=== PATIENT | female | born 1980 | race Caucasian/White ===

== ENCOUNTER 2020-08-25 09:38 | Outpatient (CLI) | payer OTHER ==
[~2020-08-25 09:38] MED LIST: KEFLEX CAP 500500 MG PO; PHENERGAN 25 MG25 M1 PO; ZOFRAN4 MG PO
== END 2020-08-25 12:13 | disposition other institution (70) ==
LOC: GENOP 09:38
PROVIDERS: Obstetrics & Gynecology
DX: O42.913 Preterm premature rupture of membranes, unspecified as to length of time between rupture and onset of labor, third trimester (principal); O99.891 Other specified diseases and conditions complicating pregnancy; M25.559 Pain in unspecified hip; M54.9 Dorsalgia, unspecified; Z3A.36 36 weeks gestation of pregnancy
CPT/HCPCS: 80307; 81001; 82731; 83518; G0463

== ENCOUNTER 2020-10-09 07:02 | Inpatient (IN) | payer OTHER ==
[~2020-10-09] VITALS: Ht 157.5 cm; Wt 99.3 kg
[2020-10-09 07:43] LABS: HEMOGLOBIN 10.4 gm/dl (12.3-15.3); RED BLOOD COUNT 3.35 M/UL (4.00-5.10)
[2020-10-09] MEDS ORDERED: PRENATAL TABLE1 EAC1 PO (07:50)
[2020-10-09] MEDS ORDERED: IBUPROFEN600 MG PO (08:51)
[2020-10-09] MEDS ORDERED: HYDROCODON-ACE1 EAC6 PO (08:51)
[2020-10-09] MEDS ORDERED: COLACE 100MG C100 MG PO (08:51)
[2020-10-10 05:12] LABS: HEMOGLOBIN 9.4 gm/dl (12.3-15.3)
[2020-10-11] MEDS ORDERED: HYDROCODON-ACE1 EAC6 PO (11:34)
[2020-10-11] MEDS ORDERED: COLACE 100MG C100 MG PO (11:34)
[2020-10-11] MEDS ORDERED: IBUPROFEN600 MG PO (11:34)
== END 2020-10-11 15:09 | disposition home or self-care (01) | DRG 788 ==
LOC: OB 07:02
PROVIDERS: Obstetrics & Gynecology; ADMIT Obstetrics & Gynecology
PROC: 4A1HX4Z Monitoring of Products of Conception, Cardiac Electrical Activity, External Approach (ICD-10-PCS; 2020-10-09)
PROC: 10D00Z1 Extraction of Products of Conception, Low, Open Approach (ICD-10-PCS; principal; 2020-10-09 08:00)
DX: O34.211 Maternal care for low transverse scar from previous cesarean delivery (principal); N85.8 Other specified noninflammatory disorders of uterus; O99.824 Streptococcus B carrier state complicating childbirth; Z3A.38 38 weeks gestation of pregnancy; Z37.0 Single live birth; Z83.3 Family history of diabetes mellitus; Z82.49 Family history of ischemic heart disease and other diseases of the circulatory system; Z87.891 Personal history of nicotine dependence
CPT/HCPCS: 36415; 80307; 81001; 82800; 85014; 85018; 85025; 85461; 86850; 86900; 86901; 90471; 90707; C9113; J0690; J1650; J1885; J2210; J2274; J2370; J2405; J2550; J2590; J2790; J3010; J7120